=== PATIENT | female | born 1985 | race Two or more races ===

== ENCOUNTER 2017-05-29 01:17 | Emergency (ER) | payer MEDICAID ==
[~2017-05-29] VITALS: Ht 165.1 cm; Wt 92.1 kg
[2017-05-29 01:54] VITALS: BP 123/74
[2017-05-29 02:07] LABS: Basophils # (auto) 0 uL; Basophils % (auto) 0.3 % (0.0-2.0); Eosinophils # (auto) 0 uL; Eosinophils % (auto) 0.6 % (0.0-7.0); Hematocrit 38.5 % (36.0-46.0); Hemoglobin 13.1 g/dL (12.2-16.2); Lymphocytes # (auto) 1.5 uL; Lymphocytes % (auto) 25.9 % (10.0-50.0); Mean Corpuscular Hemoglobin 30.4 pg (28.0-32.0); Mean Corpuscular Hgb Conc. 34.1 g/dL (32.0-36.0); Monocytes # (auto) 0.4 uL; Monocytes % (auto) 7.3 % (0.0-12.0); Neutrophils # (auto) 3.9 uL; Neutrophils % (auto) 65.9 % (37.0-80.0); Nucleated Red Blood Cells % 0.1 %; Platelet Count (auto) 303 10^3/uL (140-450); Red Blood Cells 4.33 10^6/uL (4.0-5.20); Red Cell Distribution Width 12.3 % (11.8-14.3); White Blood Cell 5.9 10^3/uL (4.4-10.8)
[2017-05-29 02:23] LABS: Albumin 3.5 g/dL (3.4-5.0); Calcium 8.5 mg/dL (8.5-10.1); Potassium 3.6 mmol/L (3.5-5.1)
[2017-05-29 02:25] LABS: BUN/Creatinine Ratio 14.3
[2017-05-29 02:27] LABS: Bilirubin, Total 1.3 mg/dL (0.2-1.0); Total Protein 7.7 g/dL (6.4-8.2)
== END 2017-05-29 04:12 | disposition left against medical advice (07) ==
LOC: ER 01:18
DX: R10.9 Unspecified abdominal pain (principal); Z53.21 Procedure and treatment not carried out due to patient leaving prior to being seen by health care provider
CPT/HCPCS: 36415; 80053; 82150; 83690; 85025

== ENCOUNTER 2018-02-06 05:46 | Day surgery (SDC) | payer MEDICAID ==
[2018-02-05 17:07] LABS: INR 1.05 (0.9-1.15); Partial Thromboplastin Time 29.1 sec (23.78-33.04); Prothrombin Time 11.2 sec (9.27-12.13)
[2018-02-05 17:28] LABS: Albumin 3.6 g/dL (3.4-5.0); BUN/Creatinine Ratio 12.2; Bilirubin, Total 0.4 mg/dL (0.2-1.0); Calcium 8.5 mg/dL (8.5-10.1); Potassium 3.7 mmol/L (3.5-5.1); Total Protein 7.4 g/dL (6.4-8.2)
[~2018-02-06] VITALS: Ht 165.1 cm; Wt 83.9 kg
[~2018-02-06 05:46] MED LIST: HYDRX10T PO
[2018-02-06] MEDS ORDERED: BUPIVACAINE 0.75% INJ 10ML MPV SDV IJ ONE (07:08)
[2018-02-06 07:19] LABS: Basophils # (auto) 0 uL; Basophils % (auto) 0.3 % (0.0-2.0); Eosinophils # (auto) 0.1 uL; Eosinophils % (auto) 1.1 % (0.0-7.0); Hematocrit 38.7 % (36.0-46.0); Hemoglobin 13.1 g/dL (12.2-16.2); Lymphocytes # (auto) 2.3 uL; Lymphocytes % (auto) 38.1 % (10.0-50.0); Mean Corpuscular Hemoglobin 30.1 pg (28.0-32.0); Mean Corpuscular Hgb Conc. 33.9 g/dL (32.0-36.0); Mean Corpuscular Volume 88.8 fL (80.0-100.0); Monocytes # (auto) 0.5 uL; Monocytes % (auto) 8.5 % (0.0-12.0); Neutrophils # (auto) 3.1 uL; Nucleated Red Blood Cells % 0.1 %; Platelet Count (auto) 239 10^3/uL (140-450); Red Blood Cells 4.36 10^6/uL (4.0-5.20); Red Cell Distribution Width 12.8 % (11.8-14.3); White Blood Cell 5.9 10^3/uL (4.4-10.8)
[2018-02-06] MEDS ORDERED: ceFAZolin 1GM/50ML 50 ML IV ONE (07:34)
[2018-02-06] MEDS ORDERED: fentaNYL CITRATE 100 MCG/2 ML VL ONE (07:36)
[2018-02-06] MEDS ORDERED: MIDAZOLAM HCL 1MG/1ML-2 ML VIAL ONE (07:37)
[2018-02-06] MEDS ORDERED: PROPOFOL 10 MG/ML 20 ML IV ONE (07:38)
[2018-02-06] MEDS ORDERED: DEXAMETHASONE SOD PHOS 10MG/1ML VIAL INJ ONE (07:38)
[2018-02-06] MEDS ORDERED: MIDAZOLAM HCL 1MG/1ML-2 ML VIAL IV PRN (08:15)
[2018-02-06] MEDS ORDERED: ONDANSETRON HCL 4 MG/2 ML VIAL IV ONE (08:15)
[2018-02-06] MEDS ORDERED: KETOROLAC TROMETH 30 MG/ML 1ML VIAL IV ONE (08:15)
[2018-02-06] MEDS ORDERED: LABETALOL HCL 5 MG/ML 4ML SYRINGE IV PRN (08:15)
[2018-02-06] MEDS ORDERED: ePHEDrine SULFATE 50 MG/ML AMP IV PRN (08:15)
[2018-02-06] MEDS ORDERED: HYDROmorphone HCL 2 MG/ML VL IV PRN (08:15)
[2018-02-06] MEDS ORDERED: MORPHINE SULFATE 4 MG/ML SYR/VIAL IV PRN (08:15)
[2018-02-06 08:59] VITALS: BP 140/87
[2018-02-06] MEDS ORDERED: MORPHINE SULFATE 4 MG/ML SYR/VIAL IV ONE (10:00)
== END 2018-02-06 09:10 | disposition home or self-care (01) ==
LOC: SUR 05:46
PROVIDERS: ATTEND Podiatrist Foot & Ankle Surgery
DX: M20.11 Hallux valgus (acquired), right foot (principal); M21.611 Bunion of right foot; E66.9 Obesity, unspecified; G47.00 Insomnia, unspecified; Z68.31 Body mass index [BMI] 31.0-31.9, adult; Z79.899 Other long term (current) drug therapy
CPT/HCPCS: 28296; J3010; 36415; 73620; 80053; 84702; 85025; 85610; 85730; C1713; C1769; J0690; J1100; J2250; J2704; J3490